=== PATIENT | male | born 1975 | race Two or more races ===

== ENCOUNTER 2016-07-17 21:37 | Emergency (ER) | payer MEDICAID | END 2016-07-17 23:13 | disposition home or self-care (01) | LOC: ER 21:38 | DX: Z53.21 Procedure and treatment not carried out due to patient leaving prior to being seen by health care provider (principal) ==

== ENCOUNTER 2016-07-18 13:23 | Emergency (ER) | payer MEDICAID, OTHER ==
[~2016-07-18] VITALS: Ht 172.7 cm; Wt 90.7 kg
[2016-07-18 13:47] VITALS: BP 120/71
== END 2016-07-18 14:21 | disposition home or self-care (01) ==
LOC: EDUNIT# 13:23 → ER 13:24
DX: J02.0 Streptococcal pharyngitis (principal)
CPT/HCPCS: A4606; Z7610

== ENCOUNTER 2017-03-03 11:34 | Emergency (ER) | payer OTHER ==
[~2017-03-03] VITALS: Ht 172.7 cm; Wt 88.5 kg
--- NOTE | 2017-03-03 11:45 | NUR ---
[id number] came to the ER c/o r shoulder pain s/[facility]. no obvious deformity noted. skin is warm and dry. rr is even and unlabored. awaiting md for eval.
[2017-03-03 12:47] VITALS: BP 116/67
== END 2017-03-03 12:50 | disposition home or self-care (01) ==
LOC: ER 11:36
DX: M25.511 Pain in right shoulder (principal); X50.0XXA Overexertion from strenuous movement or load, initial encounter; Y93.89 Activity, other specified; Y92.89 Other specified places as the place of occurrence of the external cause; Y99.8 Other external cause status
CPT/HCPCS: 73030-TC; A4606; Z7610